=== PATIENT | male | born 1955 | race African-American/Black ===

== ENCOUNTER 2022-04-13 19:43 | Emergency (ER) | payer MEDICAID, OTHER ==
[~2022-04-13] VITALS: Ht 185.4 cm; Wt 77.0 kg
[2022-04-13 21:08] LABS: BASOPHILS % 0.7 % (0.0-2.0); EOSINOPHILS % 3.3 % (0.0-5.0); HEMATOCRIT. 38.4 % (42.0-52.0); HEMOGLOBIN. 13.3 g/dL (14.0-18.0); LYMPHOCYTES % 26.7 % (20.0-50.0); MEAN CORPUSCULAR HEMOGLOBIN 32.4 pg (28.0-32.0); MEAN CORPUSCULAR VOLUME 93.6 fL (80.0-94.0); MEAN PLATELET VOLUME 8.6 fl (7.4-10.4); MONOCYTES % 9.1 % (2.0-8.0); NEUTROPHILS % 60.2 % (40.0-76.0); PLATELET 245 x1000/uL (130-400); RED CELL DISTRIBUTION WIDTH 14.7 % (11.6-14.6)
[2022-04-13 21:14] LABS: CHLORIDE 106 mEq/L (98-107)
[2022-04-13 21:23] LABS: ETHANOL BLOOD 192 mg/dL
[2022-04-14 06:24] LABS: CLARITY URINE CLEAR (CLEAR); COLOR URINE DARK YELLOW (YELLOW); KETONES URINE TRACE (NEGATIVE); LEUKOCYTE ESTERASE URINE TRACE (NEGATIVE); NITRITE URINE NEGATIVE (NEGATIVE); OCCULT BLOOD URINE NEGATIVE (NEGATIVE); PH URINE 5.5 (4.5-8.0); PROTEIN URINE TRACE (NEGATIVE); SPECIFIC GRAVITY URINE 1.031 (1.005-1.030)
[2022-04-14 06:40] LABS: *AMPHETAMINES SCREEN URINE NEGATIVE (NEGATIVE); *BARBITURATES SCREEN URINE NEGATIVE (NEGATIVE); *BENZODIAZEPINES SCREEN URINE NEGATIVE (NEGATIVE); *COCAINE SCREEN URINE PRESUMTIVE POSITIVE (NEGATIVE); CANNABINOID URINE SCREEN NEGATIVE (NEGATIVE); METHADONE URINE SCREEN NEGATIVE (NEGATIVE); OPIATES URINE SCREEN NEGATIVE (NEGATIVE); PHENCYCLIDINE URINE SCREEN NEGATIVE (NEGATIVE)
[2022-04-14] MEDS: FLUOXETINE HCL 20MG CAPSULE PO SCH (11:58)
[2022-04-14] MEDS: CHLORPROMAZINE HCL 25 MG TABLET PO SCH (16:03)
[2022-04-15] MEDS: CHLORPROMAZINE HCL 25 MG TABLET PO SCH ×3 (06:00→14:00)
[2022-04-15] MEDS: FLUOXETINE HCL 20MG CAPSULE PO SCH (08:58)
[2022-04-15 22:46] VITALS: BP 157/101
== END 2022-04-15 23:43 ==
LOC: ER 19:43
DX: T50.2X2A Poisoning by carbonic-anhydrase inhibitors, benzothiadiazides and other diuretics, intentional self-harm, initial encounter (principal); R45.1 Restlessness and agitation; F19.129 Other psychoactive substance abuse with intoxication, unspecified; F33.9 Major depressive disorder, recurrent, unspecified; F14.90 Cocaine use, unspecified, uncomplicated; Y90.6 Blood alcohol level of 120-199 mg/100 ml; F10.10 Alcohol abuse, uncomplicated; Z20.822 Contact with and (suspected) exposure to COVID-19; F91.8 Other conduct disorders; Z91.14 Patient's other noncompliance with medication regimen; I10 Essential (primary) hypertension; Y92.89 Other specified places as the place of occurrence of the external cause
CPT/HCPCS: 36415; 80053; 80305; 80307; 80320; 80329; 81001; 85025; 99285; C9803; Q0161; U0003; U0005; G0480